=== PATIENT | male | born 1970 | race Two or more races ===

== ENCOUNTER 2017-03-08 14:33 | Emergency (ER) | payer OTHER ==
[2017-03-08 14:42] VITALS: RESP 18; O2SAT 96
[2017-03-08] MEDS ORDERED: NS 1,000 ML IV ONE (16:11)
[2017-03-08] MEDS ORDERED: CLINDAMYCIN 900 MG/DEXTROSE 50 ML IV ONE (16:13)
[2017-03-08] MEDS ORDERED: IOPAMIDOL (ISOVUE-300) 100 ML BTL ONE ×2 (16:17→18:49)
--- NOTE | 2017-03-08 16:18 | EDPHY ---
H & P Time Seen by Provider: 03/08/17 15:24 HPI/ROS: HPI Facial swelling and pain. 46-year-old male. He is Turkmen-speaking only. A scooter mechanic was used for this encounter. He reports that he had his right upper central incisor and lateral incisor old at the dentist on Monday. He was not placed on antibiotics. 2 days later he started developing facial pain and swelling just above this area. He went back to the dentist. He was placed on amoxicillin 500 mg 3 times daily. He reports that 3 this week he has had worsening pain and swelling. He saw his primary care physician yesterday and was given a shot of penicillin and then discharged from the clinic. He saw his primary care physician again today complaining of worsening pain and facial swelling and he was sent to the emergency department for evaluation. He denies any medication allergies. He does not have significant pain with extraocular movements. He has not had a fever. ROS: Constitutional: No fever, no chills. No weakness. Eyes: No discharge. No changes in vision. As above. ENT: No sore throat. No nasal congestion or rhinorrhea. Respiratory: No cough. No shortness of breath. Cardiac: No chest pain, no palpitations. Gastrointestinal: No abdominal pain, no vomiting, no diarrhea. Genitourinary: No hematuria. No dysuria or increased frequency with urination. Musculoskeletal: No back pain. No neck pain. No myalgias or arthralgias. Skin: No rashes. As above. Neurological: No headache. No focal weakness or altered sensation. Past medical history: No significant past medical history. Primary care is through [facility]. Social history: Here with his family. Nonsmoker. No alcohol. Physical Exam: General Appearance: Alert, no distress. This patient is responding to questions appropriately and in full sentences. This patient appears well- hydrated and well-nourished. Eyes: Pupils equal and round no pallor or injection. No lid edema, erythema or injection. ENT, Mouth: Mucous membranes are moist. The pharyngeal tissues are unremarkable. No edema or swelling. No asymmetry suggestive of abscess. No erythema or exudates. Poor dentition. The upper central incisor and the lateral incisor on the right have been pulled. The extraction site is clean and intact. There is no significant swelling to the gums or emy gingival tissues. He has diffuse swelling with erythema and warmth and tenderness on palpation tracking up from the right upper lip through the maxilla to the right infraorbital tissues. The tissues over the lower right maxilla are tender and indurated on palpation. No fluctuant masses appreciated on palpation and gross inspection. Respiratory: There are no retractions, lungs are clear to auscultation with good air movement bilaterally. Cardiovascular: Regular rate and rhythm. No murmur. Neurological: Motor sensory function is grossly intact. Cranial nerves are normal. Gait is normal. Skin: Warm and dry, no rashes. Musculoskeletal: Neck is supple and nontender. Extremities are symmetrical. All joints range without pain or impingement. Psychiatric: No agitation. No depression. Database: EKG: Imaging: Facial CT with contrast: Significant for a abscess measuring 12 mm x 8 mm x 10 mm just superior to the alveolar ridge above the socket of the right central and lateral incisors. There is no periosteal reaction. There is induration of the tissue extending up through the maxilla but it is all preseptal. Results were discussed with staff radiologist Dr. Darian Latif. Procedures: Emergency department course: IV placed. Patient started on IV normal saline with 1 L to be given over 1 hour. He has no contraindications to NSAIDs. He was given 30 mg of IV Toradol for pain. Blood cultures were obtained. Vital signs reviewed. He will be given 900 mg of IV clindamycin. CT facial imaging will be obtained. He consents to above management. 7:30 p.m., spoke with on-call oral facial surgeon Dr. Sutton. Case discussed in detail with her. She will see this patient in the morning at 6:45 a.m. in her office for drainage of this abscess and further management. 7:40 p.m., patient re-evaluated. His pain is well controlled at this time. I discussed follow-up with oral facial surgeon. Vital signs reviewed and are stable. He feels comfortable with this plan. I will prescribe clindamycin. He will follow up in the morning with oral facial surgery as above. Return to emergency department precautions reviewed with him. All of his questions were answered. He was discharged in good condition. Differential Diagnosis: The differential diagnosis on this patient includes but is not limited to facial cellulitis, early erysipelas, dental infection, periorbital cellulitis. This represents a partial list of diagnoses considered. These considerations are based on history, physical exam, past history, reassessment and diagnostic testing. Smoking Status: Current every day smoker Constitutional: Initial Vital Signs Temperature (C) 37 C 03/08/17 14:39 Heart Rate 75 03/08/17 14:39 Respiratory Rate 18 03/08/17 14:39 Blood Pressure 125/59 H 03/08/17 14:39 O2 Sat (%) 96 03/08/17 14:39 O2 Delivery Mode Room Air Allergies/Adverse Reactions: No Known Allergies Allergy (Verified 03/08/17 14:39) Home Medications: Medication Instructions Recorded Ibuprofen [Motrin (*)] 600 mg PO Q6 PRN #15 tab 10/18/11 No Medications [NO HOME 1 ea MISC 10/18/11 MEDICATIONS] AMOXICILLIN 03/08/17 Clindamycin HCl [Clindamycin] 300 mg PO TID #30 cap 03/08/17 Medical Decision Making - Data Points Laboratory Results: Laboratory Results 03/08/17 16:25 03/08/17 16:25 Medications Given: Discontinued Medications Hydrocodone Bitart/Acetaminophen ([place] 5/325mg Prepack#6) 1 btl TAKEHOME EDNOW ONE Stop: 03/08/17 20:20 Last Admin: 03/08/17 20:28 Dose: 1 btl Clindamycin Phosphate/Dextrose (Cleocin 900 Mg (Premix)) 50 mls @ 100 mls/hr IV EDNOW ONE PRN Reason: Protocol Stop: 03/08/17 16:42 Last Admin: 03/08/17 17:31 Dose: 50 mls Sodium Chloride (Ns) 1,000 mls @ 0 mls/hr IV ONCE ONE; Wide Open PRN Reason: Protocol Stop: 03/08/17 16:12 Last Admin: 03/08/17 17:30 Dose: 1,000 mls Ketorolac Tromethamine (Toradol) 30 mg IVP EDNOW ONE Stop: 03/08/17 16:20 Last Admin: 03/08/17 17:30 Dose: 30 mg Departure - Departure Disposition: Home, Routine, Self-Care Clinical Impression: Facial cellulitis, Dental infection Condition: Good Instructions: Hydrocodone/Acetaminophen (By mouth), Dental Abscess (ED) Additional Instructions: Read and follow provided instructions. Follow-up with Dr. Sutton, oral facial surgeon, at 6:45 a.m. tomorrow morning at her office at [address] of [address] [address]. You're not to drink or eat anything after 12 midnight tonight. Take medication as prescribed. [place]/Percocet dosin-2 every 4-6 hours for [address] not drive on this medication. Return to the emergency department for worsening facial pain, facial swelling, fever or other serious concerns. Referrals: Lashell Sutton MD [Medical Doctor] - As per Instructions Prescriptions: Clindamycin HCl [Clindamycin] 300 mg PO TID #30 cap
[2017-03-08] MEDS ORDERED: KETOROLAC 30 MG/1 ML SDV IVP ONE (16:19)
[2017-03-08 16:40] LABS: % IMMATURE GRANULYOCYTES 0.3 % (0.0-1.1); ABSOLUTE IMMATURE GRANULOCYTES 0.04 10^3/uL (0.00-0.10); ADD DIFF? NO; ADD MORPH? NO; ADD SCAN? NO; ATYPICAL LYMPHOCYTE FLAG 0 (0-99); FRAGMENT RBC FLAG 0 (0-99); HEMATOCRIT 43.8 % (40.0-51.0); HEMOGLOBIN 15.1 g/dL (13.7-17.5); LEFT SHIFT FLG 0 (0-99); LIPEMIA HEMOLYSIS FLAG 90 (0-99); MEAN CELL HEMOGLOBIN 29.9 pg (27.9-34.1); MEAN CELL HEMOGLOBIN CONCENTR. 34.5 g/dL (32.4-36.7); MEAN CELL VOLUME 86.7 fL (81.5-99.8); PLATELET CLUMPS FLAG 0 (0-99); PLATELET COUNT 269 10^3/uL (150-400); RED BLOOD CELL COUNT 5.05 10^6/uL (4.40-6.38); RED CELL DISTRIBUTION WIDTH 12.4 % (11.5-15.2)
[2017-03-08 16:51] LABS: ANION GAP 15 mEq/L (8-16); CALCIUM 9.3 mg/dL (8.5-10.4); CARBON DIOXIDE 26 mEq/l (22-31); CHLORIDE 104 mEq/L (97-110); CREATININE 0.9 mg/dL (0.7-1.3); GLOMERULAR FILTRATION RATE > 60; GLUCOSE 96 mg/dL (70-100); POTASSIUM 4.4 mEq/L (3.5-5.2); SODIUM 145 mEq/L (134-144)
[2017-03-08 19:52] VITALS: BP 131/86; PULSE 79; TEMP 98.2
[2017-03-08] MEDS ORDERED: HYDROCOD/APAP 5/325 PREPACK#6 BTL TAKEHOME ONE (20:19)
== END 2017-03-08 20:31 | disposition home or self-care (01) ==
DX: L03.211 Cellulitis of face (principal); K04.7 Periapical abscess without sinus; F17.200 Nicotine dependence, unspecified, uncomplicated; E86.9 Volume depletion, unspecified
CPT/HCPCS: 96374; J1885; Q9967